=== PATIENT | female | born 2000 | race Caucasian/White ===

== ENCOUNTER → 2018-03-15 14:25 | Outpatient (CLI) | payer OTHER, SELFPAY ==
--- NOTE | 2018-03-15 14:28 | DI.RAD.S_ITS ---
PROCEDURE: XR ANKLE RT MIN 3V INDICATIONS: Medial right ankle pain TECHNIQUE: 3 views of the ankle were acquired. COMPARISON: [facility], CR, XR ANKLE RT MIN 3V, 09/07/2017, 16:30. [facility], CR, ANKLE 3 VIEWS RIGHT, 09/13/2008, 16:08. FINDINGS: Bones: No acute fractures or dislocations. Ankle mortise is normally aligned. No suspicious bony lesions. Healed fracture lateral fibular distal metadiaphyseal junction. Soft tissues: No tibiotalar joint effusion. Achilles tendon appears normal. IMPRESSION: Shortness of medial pain found. Previously present subtle fracture at the metadiaphyseal junction of the distal right fibula has healed in normal anatomic alignment. Dictated by: Deon Ervin M.D. on 03/15/2018 at 15:06 Approved by: Deon Ervin M.D. on 03/15/2018 at 15:07
== END ==
PROVIDERS: PCP Physician Assistant; Visit Provider Physician Assistant
DX: M25.571 Pain in right ankle and joints of right foot (principal); Z87.81 Personal history of (healed) traumatic fracture
CPT/HCPCS: 73610

== ENCOUNTER → 2018-12-15 19:52 | Outpatient (CLI) | payer OTHER, SELFPAY ==
[2018-12-15 20:04] LABS: Add Manual Diff / Slide Review NO; Basophils Absolute Auto 100 /uL (0-100); Basophils Percent Auto 0.5 % (0-2); Eosinophils Absolute Auto 100 /uL (0-450); Eosinophils Percent Auto 1.3 % (2-4); Hematocrit 36.9 % (36-46); Hemoglobin 11.8 g/dL (12.0-16.0); Lymphocytes Absolute Auto 1500 /uL (1100-4500); Lymphocytes Percent Auto 13.9 % (25-40); Mean Corpuscular HGB Conc 32.1 % (30-36); Mean Corpuscular Hemoglobin 25.3 PG (26-34); Mean Corpuscular Volume 78.9 fL (80-100); Monocytes Absolute Auto 1300 /uL (0-900); Monocytes Percent Auto 12.2 % (3-14); Neutrophils Absolute Auto 7800 /uL (1500-7000); Neutrophils Percent Auto 72.1 % (50-75); Platelet Count 243 X10^3/uL (150-400); Red Blood Cell Count 4.67 X10^6/uL (4.0-5.2); White Blood Cell Count 10.8 X10^3/uL (4.5-11.0)
[2018-12-15 20:08] LABS: Monotest Negative (Negative)
== END ==
PROVIDERS: PCP Physician Assistant; Visit Provider Physician Assistant
DX: J02.9 Acute pharyngitis, unspecified (principal)
CPT/HCPCS: 85025; 86318; 87070; 87077; 87147

== ENCOUNTER 2021-10-25 05:04 | Emergency (ER) | payer SELFPAY ==
[2021-10-25 05:10] VITALS: BP 123/85; PULSE 80; RESP 18; TEMP 36.6; O2SAT 99; BMI 19.0
--- NOTE | 2021-10-25 05:14 | DI.RAD.S_ITS ---
PROCEDURE: XR SHOULDER RT MIN 2V INDICATIONS: dislocation history TECHNIQUE: To views of the shoulder were acquired. COMPARISON: [facility], CR, XR SHOULDER RT 1V, 10/25/2021, 6:04. FINDINGS: Bones: Humerus is anteriorly dislocated. No suspicious bony lesions. Visualized ribs appear intact. Soft tissues: No suspicious soft tissue calcifications. IMPRESSION: Anterior right shoulder dislocation. Dictated by: Almaz Espinoza MD, PhD on 10/25/2021 at 8:31 Approved by: Almaz Espinoza MD, PhD on 10/25/2021 at 8:32
--- NOTE | 2021-10-25 05:38 | PC.NURSE ---
pt states her shoulder popped out about 0430 this am this is the 35th time her shoulder has done this and she has an apt with ortho on Wed
--- NOTE | 2021-10-25 05:53 | DI.RAD.S_ITS ---
PROCEDURE: XR SHOULDER RT 1V INDICATIONS: Post reduction TECHNIQUE: 1 views of the shoulder were acquired. COMPARISON: None. FINDINGS: Bones: Status post close reduction of right shoulder anterior dislocation. No suspicious bony lesions. Visualized ribs appear intact. Soft tissues: No suspicious soft tissue calcifications. IMPRESSION: Status post reduction of right shoulder anterior dislocation. Dictated by: Almaz Espinoza MD, PhD on 10/25/2021 at 8:32 Approved by: Almaz Espinoza MD, PhD on 10/25/2021 at 8:33
--- NOTE | 2021-10-25 05:54 | ED.EXTPRO ---
HPI - Extremity Problem General Chief complaint: Extremity Problem,Nontraumatic Stated complaint: pop shoulder out of socket right shoulder Time Seen by Provider: 10/25/21 05:35 Source: patient Mode of arrival: Ambulatory History of Present Illness HPI Narrative: patient here for spontaneous right shoulder dislocation. Patient here with mother. [place]. She states that she has had at least 30 dislocations. She usually can get them back in herself. However in this month she has had 3 of them and they have been anterior which is unusual for her. She has required help to get them back in. She states it dislocated this morning while she was sleeping. That is not uncommon for her. In no diagnosis of Marfan syndrome, has never been tested. No previous surgery for her shoulder. Patient stays does not require sedation to get her shoulder back in. She prefers no medication. Related Data Previous Rx's Medication Instructions Recorded mupirocin 2 % topical ointment 1 applic topical TID #30 grams 07/11/20 Allergies Allergy/AdvReac Type Severity Reaction Status Date / Time amoxicillin [AMOXICILLIN] Allergy Intermediate rash Verified 08/12/20 16:19 Review of Systems Review of Systems Narrative: GENERAL: Denies chills, fatigue, malaise, fever, sweats. HEENT: Denies sinus pain, ear pain, sore throat RESPIRATORY: Denies dyspnea, cough CARDIOVASCULAR: Denies chest pain, palpitations GASTROINTESTINAL: Denies nausea, vomiting, abdominal pain : Denies dysuria, frequency, hematuria MUSCULOSKELETAL: denies muscle Positive for bony pain SKIN: Denies rash, skin lesions NEUROLOGIC: Denies weakness, numbness ROS Unobtainable: All systems reviewed & are unremarkable except as noted in HPI and below Patient History Medical History Infection of ear, external, right Social History Smoking Status: Never smoker Smoking Status: Never smoker alcohol intake frequency: a few times a week Substance Use Type: marijuana Exam Narrative Exam Narrative: GENERAL: in no distress, not toxic not dyspneic HEAD: Normocephalic. EYES: Pupils equal round No scleral icterus. EXTREMITIES: deformity of the right shoulder. There is a anterior dropped off. Limited range of motion of the right shoulder due to deformity. Hand is warm soft and pink with strong radial pulse with light touch intact to thumb and fingers. NEURO: AOx4. SKIN: Warm and dry PSYCH: Not anxious, is cooperative Initial Vital Signs Initial Vital Signs: Vital Signs Temperature 98 F 10/25/21 05:10 Pulse Rate 80 10/25/21 05:10 Respiratory Rate 18 10/25/21 05:10 Blood Pressure 123/85 10/25/21 05:10 Pulse Oximetry 99 10/25/21 05:10 Oxygen Delivery Method 10/25/21 05:10 Procedures Orthopedic Joint Reduction Joint #1: Time of procedure: 05:57 Side: right Joint Reduction Location: shoulder Analgesia: none Shoulder Technique Used (if applicable): external rotation Technique used: direct manipulation Post-reduction neuro exam: intact Post-reduction vascular: intact Post Reduction X-Ray Obtained: Yes Post Reduction X-Ray Results: reduced Splint Applied: No Patient Tolerated Procedure: Well and No complications Additional Comments: No sling indicated at this time. Patient has spontaneous dislocations without any stressors. Course Course Course Narrative: No new issues during course of stay Orders Ordered: ED Orders 10/25/21 05:14 XR shoulder RT min 2V Stat 10/25/21 05:53 XR shoulder RT 1V Stat Reevaluation(s) Reevaluation #1: patient feels much better after reduction. Able to touch left shoulder with right hand. No deformity on palpation of the right shoulder. Reviewed with mother and patient needs follow-up with orthopedic surgeon for possible surgical intervention. Also needs primary care to evaluate for any genetic predisposition such as Marfan Time: 05:59 Reevaluation #2: patient and family do not want await for results of x-ray after reduction. Patient states feels much better and desires discharge home Time: 06:30 Vital Signs Vital signs: Vital Signs - 8 hr 10/25/21 05:10 10/25/21 06:39 Temperature 98 F Pulse Rate 80 75 Respiratory Rate 18 16 Blood Pressure 123/85 118/79 Pulse Oximetry 99 99 Oxygen Delivery Method Room Air Room Air MDM - Extremity (Nontraumatic) Differential Diagnosis Differential diagnosis: Likely other ( dislocation of the shoulder) Imaging Data Extremity x-ray #1: Radiologist's Impression: x-ray right shoulder impression anterior shoulder dislocation without fracture Extremity x-ray #2: My Impression: there is been interval reduction of the humeral head. No fracture Radiologist's Impression: anatomic alignment of the humeral head within the glenoid without evidence of fracture MDM Narrative Medical decision making narrative: appropriate for discharge. Exam and imaging reassuring. No neurovascular deficits. Referral for Orthopedics given. Return precautions reviewed with patient and mother. Discharge Plan Departure Patient Disposition: Home Clinical Impression: Anterior shoulder dislocation Activity Restrictions/Additional Instructions: no sports activity until evaluated by Orthopedic Services. Call provided office today to make appointment for re-evaluation. See family doctor regarding had testing for any pre disposition to dislocations. Call provided primary care referral phone number to establish family doctor. Call [phone] Prescriptions: No Action mupirocin 2 % ointment 1 applic topical TID Qty: 30 0RF Referrals: Corinna Bass MD [Physician] - Visit Report Forms: Patient Portal/API
[2021-10-25 06:39] VITALS: BP 118/79; PULSE 75; RESP 16; O2SAT 99
== END 2021-10-25 06:41 | disposition home or self-care (01) ==
PROVIDERS: Emergency Provider Emergency Medicine
DX: S43.004A Unspecified dislocation of right shoulder joint, initial encounter (principal)
CPT/HCPCS: 23650; 73020; 73030; 99281; 99283

== ENCOUNTER 2022-06-14 20:28 | Emergency (ER) | payer OTHER, SELFPAY ==
[2022-06-14 20:41] VITALS: BP 115/66; PULSE 55; RESP 16; TEMP 36.6; O2SAT 100; BMI 19.6
--- NOTE | 2022-06-14 20:41 | DI.RAD.S_ITS ---
PROCEDURE: XR ELBOW RT MIN 3V INDICATIONS: Injury with redness and swelling TECHNIQUE: 3 views of the elbow were acquired. COMPARISON: None. FINDINGS: Bones: No fractures or dislocations. No suspicious bony lesions. Soft tissues: No elbow joint effusion. No suspicious soft tissue calcifications. IMPRESSION: No trauma. Dictated by: Deon Ervin M.D. on 06/14/2022 at 20:56 Approved by: Deon Ervin M.D. on 06/14/2022 at 20:57
[2022-06-14] MEDS: TET,DIPH,PERTUSS(ACELL),VAC/PF 0.5 ML SYRINGE IM (20:51)
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
[2022-06-14 21:56] VITALS: BP 105/58; PULSE 49; RESP 16; O2SAT 100
[2022-06-14] MEDS: DOXYCYCLINE HYCLATE 100 MG TABLET PO (21:57)
== END 2022-06-14 21:58 | disposition home or self-care (01) ==
PROVIDERS: Emergency Provider Emergency Medicine
DX: L03.113 Cellulitis of right upper limb (principal); Z23 Encounter for immunization
CPT/HCPCS: 73080; 90471; 99283; 99284; 90715